=== PATIENT | male | born 1950 | race Caucasian/White ===

== ENCOUNTER → 2016-07-19 | Outpatient (CLI) | payer OTHER ==
[~2016-07-19] VITALS: Ht 185.4 cm; Wt 162.1 kg
[~2016-07-19] MED LIST: ALL100 PO; ALLO300T2 PO; ALTERIL PO; ASCO10003 PO; ASPI325T39 PO; ATEN-173 PO; CHOL100010 PO; CYCL10TA6 PO; DTR2 PO; FEBU80TA PO; HYDR-3714 PO; IBUP-1050 PO; LEVO75TA5 PO; LISI5TAB3 PO; MAGN400T5 PO; MULT1TAB30 PO; OXYSR10 PO; XRL10 PO; ZNT/150 PO; ZQUIL PO; [UNRECOGNIZED DRUG - REMARK]
[2016-07-19 12:56] VITALS: Ht 185.4 cm; Wt 162.1 kg
--- NOTE | 2016-07-19 13:43 | PAT Medication Instructions ---
Service Date Jul 19, 2016. Current Home Medication List Allopurinol (Allopurinol), 1 TAB PO QAM Ascorbic Acid (Vitamin C), 1 TAB PO QAM Atenolol (Tenormin), 12.5 MG PO QAM Cholecalciferol (Vitamin D), 1,000 INTER.UNIT PO QAM Cyclobenzaprine Hcl (Flexeril), 10 MG PO BID PRN for MUSCLE SPASMS Febuxostat (Uloric), 1 TAB PO QAM Hydrocodon/Acetaminophen 7.5MG/300MG (Vicodin Es (7.5MG/300MG)), 1 TAB PO Q4 PRN for Pain Ibuprofen (Advil), 200 MG PO UD PRN for HEADACHE Levothyroxine Sodium (Levothyroxine Sodium), 1 TAB PO QAM Lisinopril (Zestril), 5 MG PO QAM Magnesium Oxide (Mag-Ox), 400 MG PO QAM Multiple Vitamins W/ Minerals (Choco Multivitamin For Men), 2 TAB PO QAM Ranitidine Hcl (Zantac), 150 MG PO QAM Tolterodine Tartrate (Detrol), 4 MG PO QAM [Alteril], 1 DOSE PO UD PRN for SLEEP [Go Low/Diet Med], Unknown Dose Medication Instructions For Your Scheduled Surgery - Check with surgeon for instructions: Ibuprofen (Advil), 200 MG PO UD PRN for HEADACHE - Hold the following medications the morning of surgery: [Go Low/Diet Med], Unknown Dose Lisinopril (Zestril), 5 MG PO QAM Magnesium Oxide (Mag-Ox), 400 MG PO QAM Multiple Vitamins W/ Minerals (Choco Multivitamin For Men), 2 TAB PO QAM Ranitidine Hcl (Zantac), 150 MG PO QAM Tolterodine Tartrate (Detrol), 4 MG PO QAM Cyclobenzaprine Hcl (Flexeril), 10 MG PO BID PRN for MUSCLE SPASMS Cholecalciferol (Vitamin D), 1,000 INTER.UNIT PO QAM Ascorbic Acid (Vitamin C), 1 TAB PO QAM - Take the following medications the morning of surgery with a sip of water: Levothyroxine Sodium (Levothyroxine Sodium), 1 TAB PO QAM Atenolol (Tenormin), 12.5 MG PO QAM Allopurinol (Allopurinol), 1 TAB PO QAM Febuxostat (Uloric), 1 TAB PO QAM Hydrocodon/Acetaminophen 7.5MG/300MG (Vicodin Es (7.5MG/300MG)), 1 TAB PO Q4 PRN for Pain (okay to take up to 4 hours prior to surgery if needed) - Take the following medications as scheduled the night before surgery: Cyclobenzaprine Hcl (Flexeril), 10 MG PO BID PRN for MUSCLE SPASMS Hydrocodon/Acetaminophen 7.5MG/300MG (Vicodin Es (7.5MG/300MG)), 1 TAB PO Q4 PRN for Pain (if needed) [Alteril], 1 DOSE PO UD PRN for SLEEP If you have any questions please call us at [phone] or [phone] or [phone]
[2016-07-19 13:54] LABS: BASO % 0.6 %; BASO ABS # 0.05 K/uL (0-0.2); COMPLETE YES; EOS % 3.7 %; HEMATOCRIT 51.1 % (42-52); IG% 0.4 %; LYMPH % 27.8 %; LYMPH ABS # 2.33 K/uL (1.2-3.4); MEAN CELL VOLUME 94.6 fL (80-100); MEAN CORPUSCULAR HGB CONC 31.7 g/dl (32-36); MEAN PLATELET VOLUME 10.9 fL (7.4-10.4); MONO % 9.2 %; NEUT % 58.3 %; PLATELET COUNT 238 K/uL (130-400); WHITE BLOOD COUNT 8.37 K/uL (4.8-10.8)
[2016-07-19 13:58] LABS: URINE APPEARANCE CLEAR (CLEAR); URINE BILIRUBIN NEG (NEG); URINE COLOR DK YELLOW; URINE NITRITE NEG (NEG); URINE SPECIFIC GRAVITY 1.019 (1.000-1.030); UROBILINOGEN NEG (NEG)
[2016-07-19 14:02] LABS: MANUAL MICROSCOPIC REQUIRED? NO; REVIEW REQ? NO
[2016-07-19 15:04] LABS: BUN/CREATININE RATIO 14.9 (10-20); CALCIUM 9.1 mg/dl (8.5-10.1); CREATININE 1.5 mg/dl (0.60-1.40); POTASSIUM 4.3 mmol/L (3.5-5.1)
== END | disposition home or self-care (01) ==
LOC: C.LAB 08:00 → EDSTATUS 08-10 07:30
PROVIDERS: ATTEND Orthopaedic Surgery Orthopaedic Surgery of the Spine
DX: Z01.818 Encounter for other preprocedural examination (principal)